=== PATIENT | male | born 1965 | race Caucasian/White ===

== ENCOUNTER 2017-06-05 12:23 | Emergency (ER) | payer MEDICAID ==
[~2017-06-05] VITALS: Ht 188 cm; Wt 96.2 kg
[2017-06-05 15:27] VITALS: BP 150/96
== END 2017-06-05 15:27 | disposition short-term general hospital (02) ==
LOC: ED 12:23
DX: S52.572B Other intraarticular fracture of lower end of left radius, initial encounter for open fracture type I or II (principal); W01.0XXA Fall on same level from slipping, tripping and stumbling without subsequent striking against object, initial encounter; Y93.89 Activity, other specified; Y92.89 Other specified places as the place of occurrence of the external cause; Y99.8 Other external cause status
CPT/HCPCS: 90715; J0690; J1170; J2405; J2704; J3490; J7040; Q0092